=== PATIENT | female | born 1980 ===

== ENCOUNTER 2024-03-17 17:31 | Emergency (ER) | payer OTHER, SELFPAY ==
[2024-03-17 17:34] VITALS: BP 142/100
[2024-03-17 17:40] VITALS: BP 142/100
[2024-03-17 17:55] LABS: Hematocrit 40.4 % (37.0-47.0); Hemoglobin 13.5 g/dL (12.0-16.0); Mean Corp Hgb Conc. 33.4 g/dL (33.0-37.0); Mean Corpuscular Hgb 28.1 pg (27.0-31.0); Mean Corpuscular Volume 84.2 fL (81.0-99.0); Mean Platelet Volume 10.4 fL (7.4-10.4); Platelet Count 264 10^3/uL (130-400); Red Cell Dist. Width 12.6 % (11.5-14.5); White Blood Cell Count 6.5 10^3/uL (4.8-10.8)
[2024-03-17 18:07] LABS: ALT (SGPT) 21 U/L (0-35); AST (SGOT) 21 U/L (14-36); Albumin 5.4 g/dl (3.5-5.0); Alkaline Phosphatase 47 U/L (38-126); Blood Urea Nitrogen 13 mg/dl (7-17); Calcium 10.4 mg/dl (8.4-10.2); Carbon Dioxide 28 mmol/L (22-30); Chloride 101 mmol/L (98-107); Glucose 110 mg/dl (70-99); Potassium 4.4 mmol/L (3.5-5.1); Sodium 141 mmol/L (135-145); Total Bilirubin 0.7 mg/dl (0.2-1.3); Total Protein 8.5 g/dl (6.3-8.2); eGFR > 60.00
[2024-03-17 18:12] LABS: % Basophils 0.2 % (0-2); % Eosinophils 2.3 % (0-6); % Immature Granulocytes 0.2 % (0-0.5); % Lymphocytes 53.4 % (20.5-51.1); % Monocytes 12.5 % (1.7-9.3); % Neutrophils 31.4 % (42.2-75.2); Absolute Eosinophils 0.2 10^3/uL (0-0.7); Absolute Lymphocytes 3.5 10^3/uL (1.2-3.4); Absolute Monocytes 0.8 10^3/uL (0.1-0.6); Absolute Neutrophils 2.1 10^3/uL (1.4-6.5); Nucleated Red Blood Cells % 0 %
--- NOTE | 2024-03-17 19:17 | ED.GENMED ---
History of Present Illness
General
Chief Complaint: Eye Problems
Source: patient
Exam Limitations: none
Time Seen by Provider: 03/17/24 18:53
History of Present Illness
History of Present Illness:
43-year-old female presents after she had flashes in her right eye while watching something on the TV. Patient admits she recently had the flu and was on Tamiflu but did not feel well on it has some dizziness and stopped it. She also states she
was looking at her phone a lot because she was sick. She states she was holding her phone close for long periods of time. She states symptoms lasted about 10 minutes. The vision was not blurry. There is no loss of vision is in no double vision.
She had a sort of squiggly line in the visual field. Also noticed it when she closes her eyes. Currently symptom-free. No headache. Has been little bit lightheaded but again had the flu this week and is just recovering.
Past History
Past History
ED Past Medical History: HTN
ED Past Surgical History:
Phy Exam
Physical Exam
Physical Exam:
CONSTITUTIONAL Patient alert and oriented to person, place and time. Well-appearing. Vital signs reviewed.
HEAD atraumatic, normocephalic.
EYES eyelids normal to inspection, Extraocular muscles intact, Conjunctiva normal, Sclera normal. Panoptic notes a normal optic cup and disc. Normal cup-to-disc ratio bilaterally. No obvious retinal abnormalities on visualized field. No visual
field cuts.
NECK normal range of motion, Trachea midline, no jugular venous distention.
RESPIRATORY CHEST No respiratory distress noted, Chest expansion equal
BACK normal inspection, no obvious deformities
UPPER EXTREMITY range of motion normal, Motor strength normal, no cyanosis, no edema.
LOWER EXTREMITY range of motion normal, Motor strength normal, no cyanosis, no edema.
NEURO Speech normal, No focal motor deficits, Allyson coma scale 15, Memory normal, Cranial Nerves intact to screening exam. Normal gait
SKIN skin warm, dry, and normal in color.
Course
Orders/Labs/Results
Orders:
Orders
03/17/24 17:43
Complete Blood Count/With Diff Urgent
Comprehensive Metabolic Panel Urgent
Abnormal Lab Results
03/17/24
17:43
Absolute Lymphs (auto) 3.5 H 10^3/uL
(1.2-3.4)
Absolute Monos (auto) 0.8 H 10^3/uL
(0.1-0.6)
Neutrophils % 31.4 L %
(42.2-75.2)
Lymphocytes % 53.4 H %
(20.5-51.1)
Monocytes % 12.5 H %
(1.7-9.3)
Glucose 110 H mg/dl
(70-99)
Calcium 10.4 H mg/dl
(8.4-10.2)
Total Protein 8.5 H g/dl
(6.3-8.2)
Albumin 5.4 H g/dl
(3.5-5.0)
03/17/24 17:43
03/17/24 17:43
Vital Signs
Blood pressure: 150/95
Initial and Last Documented VS:
Initial Vital Signs
Temp Pulse Resp BP Pulse Ox
98.2 F 91 18 142/100 98
03/17/24 17:34 03/17/24 17:34 03/17/24 17:34 03/17/24 17:34 03/17/24 17:34
Last Documented Vital Signs
Temp Pulse Resp BP Pulse Ox
98.4 F 91 18 142/100 98
03/17/24 17:40 03/17/24 17:34 03/17/24 17:40 03/17/24 17:40 03/17/24 17:40
MDM/Problems Addressed
MDM/Problems Addressed:
Visual distortion, influenza
*Pulse Oximetry
Patient hypoxic: no
*Critical Care Note
Total Time (30-74mins, 75-104mins- exclusive of procedures): Not Applicable
Data Reviewed
Source: patient and family (Family states they were concerned about stroke.)
Further Testing Considered But Not Given:
Consider head CT but clearly was in the right eye only. No clinical sign for [employer] event
Patient Management
Escalation/DeEscalation of care consider admission/obs:
Symptoms have resolved so no clinical suspicion for retinal detachment. Optic nerve appears okay. Recommend close outpatient ophthalmologic follow-up
Update Note
Update Note:
Visual acuity right 20/20, left 20/30 and both 20/20
ED Attending Note
-
Portions of this chart may have been created with voice recognition software.� Occasional wrong word or��sound alike� substitutions may have occurred due to the inherent limitations of voice recognition software.
Discharge Plan
Departure
Patient Disposition: Home (Routine Discharge)
Date of Disposition: 03/17/24
Time of Disposition: 19:21
Patient with high blood pressure during this ER visit?: Yes
Discharge Problem:
Visual disturbance
Instructions: BLOOD PRESSURE
Referrals:
Hussain Lopez MD [Family Provider] -
Activity Restrictions/Additional Instructions:
Visual disturbance
Please see your eye doctor in the next 3 to 5 days for follow-up and reevaluation and detailed retinal exam. Return immediately for loss of vision, double vision, headache or any other concerns
Your blood pressure was elevated while in the Emergency Department, please have your doctor re-evaluate it in the next 48 hours as untreated hypertension may lead to serious complications.
Interventions
Interventions:
*Risk Screen - Suicide Last Done: 03/17/24 17:39
*Neglect/Abuse Screening Last Done: 03/17/24 17:39
*ED COVID-19 Vaccine History Last Done: 03/17/24 17:39
Discharge Date and Time
Print Language: JAPANESE
[2024-03-17 19:54] VITALS: BP 150/95
== END 2024-03-17 19:55 | disposition home or self-care (01) ==
LOC: EMR 17:31
PROVIDERS: Student in an Organized Health Care Education/Training Program; EMERGENCY PHYSICIAN Emergency Medicine; FAMILY PHYSICIAN Internal Medicine
DX: H53.9 Unspecified visual disturbance (principal); I10 Essential (primary) hypertension
CPT/HCPCS: 99283; 80053; 85025